=== PATIENT | female | born 1955 | race Caucasian/White ===

== ENCOUNTER 2020-03-15 16:37 | Emergency (ER) | payer OTHER ==
--- NOTE | 2020-03-15 16:45 | PDOC ---
Rapid Medical Evaluation Time Seen by Provider: 03/15/20 16:39 Medical Evaluation: 03/15/20 16:41 I have performed a brief in-person evaluation of this patient. CC: sent by PMD for hyponatremia; NA-123 PE: fine crackles bilateral bases. No focal neuro deficits. Orders: Labs, urine, cxr, ekg Patient will proceed to ED for further evaluation. 03/15/20 16:44 Discharge Disposition - Diagnosis Hyponatremia - Referrals - Patient Instructions - Post Discharge Activity
[2020-03-15 17:01] VITALS: BP 162/79; PULSE 98; TEMP 99.6; BMI 19.7
[2020-03-15 17:57] LABS: BASO % 0.3 % (0-2.0); EOS % 2.3 % (0-4.5); HEMATOCRIT 32.4 % (32.4-45.2); HEMOGLOBIN 10.5 GM/dL (10.7-15.3); LYMPH % 20.2 % (8-40); MCH 25.9 pg (25.7-33.7); MCHC 32.5 g/dl (32.0-36.0); MEAN CELL VOLUME 79.7 fl (80-96); MEAN PLT VOLUME 7.1 fl (7.5-11.1); MONO % 2.6 % (3.8-10.2); NEUT % 74.6 % (42.8-82.8); PLATELET COUNT 509 K/MM3 (134-434); RBC 4.06 M/mm3 (3.60-5.2); RDW 16.4 % (11.6-15.6); WHITE BLOOD COUNT 9.9 K/mm3 (4.0-10.0)
--- NOTE | 2020-03-15 18:10 | PDOC ---
History of Present Illness - General Chief Complaint: Abnormal Lab Results (Outside) Stated Complaint: SENT BY DOC Time Seen by Provider: 03/15/20 16:39 - History of Present Illness Initial Comments: 03/15/20 18:04 64 F with hx of polyarteritist presenting with hyponatremia as found from her new PCP. Patient has no new symptoms and went to establish care with Dr. Ramirez yesterday. There they found her to be hyponatremia of 124, had crackles at the bases bilaterally. At ED, She denies any new symptoms. patient is not confused, denies nausea, vomiting, headache, chest pain, SOB, syncope. She endorses joints and back pain that are chronic for 10 years. Patient denies sick contact with COVID. She denies F/C/congestion, abdominal pain. No other concern. PMHX: as in HPI PSHX: none Meds: none Allergies: none Tob: none Etoh: none Rec drugs: none PCP: Brandt Ramirez Sifter Operator: Jared GONZALEZ GENERAL/CONSTITUTIONAL: No fever or chills. No weakness. HEAD, EYES, EARS, NOSE AND THROAT: No change in vision. No ear pain or discharge. No sore throat. CARDIOVASCULAR: No chest pain or shortness of breath RESPIRATORY: No cough, wheezing, or hemoptysis. GASTROINTESTINAL: No nausea, vomiting, diarrhea or constipation. GENITOURINARY: No dysuria, frequency, or change in urination. MUSCULOSKELETAL: + joints pain. No neck pain, + back pain. SKIN: No rash NEUROLOGIC: No headache, vertigo, loss of consciousness, or change in strength/sensation. ENDOCRINE: No increased thirst. No abnormal weight change HEMATOLOGIC/LYMPHATIC: No anemia, easy bleeding, or history of blood clots. ALLERGIC/IMMUNOLOGIC: No hives or skin allergy. PE GENERAL: Awake, alert, and fully oriented, in no acute distress HEAD: No signs of trauma, normocephalic, atraumatic EYES: PERRLA, EOMI, sclera anicteric, conjunctiva clear ENT: Auricles normal inspection, hearing grossly normal, nares patent, oropharynx clear without exudates. Moist mucosa NECK: Normal ROM, supple, no lymphadenopathy, JVD, or masses LUNGS: No distress, speaks full sentences, bilateral crackles more on right than left. HEART: Regular rate and rhythm, normal S1 and S2, no murmurs, rubs or gallops, peripheral pulses normal and equal bilaterally. ABDOMEN: Soft, nontender, normoactive bowel sounds. No guarding, no rebound. No masses EXTREMITIES : Normal inspection, Normal range of motion, no edema. No clubbing or cyanosis. NEUROLOGICAL: Cranial nerves II through XII grossly intact. Normal speech, normal gait, no focal sensorimotor deficits SKIN: Warm, Dry, normal turgor, no rashes or lesions noted 03/15/20 18:19 03/15/20 19:44 Past History - Medical History Allergies/Adverse Reactions: Allergies Allergy/AdvReac Type Severity Reaction Status Date / Time No Known Allergies Allergy Verified 03/15/20 16:49 Home Medications: Ambulatory Orders NK [No Known Home Medication] 03/15/20 COPD: No - Reproductive History Is Patient Now?: No - Immunization History Immunization Up to Date: No - Psycho-Social/Smoking History Smoking History: Never smoked Have you smoked in the past 12 months: No Information on smoking cessation initiated: No - Substance Abuse Hx (Audit-C & DAST Scrn) How often the patient has a drink containing alcohol: Never Score: In Men: 4 or > Positive; In Women: 3 or > Positive: 0 Screen Result (Pos requires Nsg. Audit-10AR): Negative In the last yr the pt used illegal drug/Rx for NonMed reason: No Score: Yes response is considered Positive: 0 Screen Result (Positive result requires Nsg. DAST-10): Negative *Physical Exam - Vital Signs Last Vital Signs Temp Pulse Resp BP Pulse Ox 99.6 F 98 H 16 162/79 97 03/15/20 16:43 03/15/20 16:43 03/15/20 16:43 03/15/20 16:43 03/15/20 16:43 ED Treatment Course - LABORATORY CBC & Chemistry Diagram: 03/15/20 16:52 03/15/20 16:52 Medical Decision Making - Medical Decision Making 03/15/20 18:10 64 F with referral from PCP for concern of hyponatremia of 124. Will follow the algorithm of hyponatremia. 03/15/20 19:44 Xray showed chronic interstitial lung disease. Lab show Na of 129. s/p 1 days from found hyponatremia [address] James wilkinson. Patient is asymptomic. Sodium is on the borderline normal . Given the presentation, patient is stable. Will d/c home and follow up with Dr. Ramirez. Discharge - Discharge Information Problems reviewed: Yes Clinical Impression/Diagnosis: Hyponatremia Condition: Stable Disposition: HOME - Admission No - Follow up/Referral Referrals: Conrado Mccollum MD [Staff Physician] - - Patient Discharge Instructions Additional Instructions: You were seen in the ED for complaints of low sodium found in your PCP office. In the ED you were evaluated with labwork, found to have sodium of nearly normal and you have no symptoms at this time. There does not appear to be an acute need for immediate hospitalization. You are advised to follow up with your Primary Care Physician within 1 week. Return to the ED immediately if you experience nausea, headache, vomiting, confusion, or any other concerning symptoms. Fue visto en el servicio de urgencias por quejas de bajo contenido de sodio en el [facility]. En el servicio de urgencias lo evaluaron con trabajo de laboratorio, se encontr que trudy sodio corinne normal y no tiene sntomas en mary momento. No parece go macie necesidad aguda de hospitalizacin inmediata. Se le recomienda hacer un seguimiento con [facility] atencin primaria dentro de 1 semana. Regrese al servicio de urgencias de inmediato si experimenta nuseas, dolor de pricila, vmitos, confusin o cualquier otro sntoma preocupante. - Post Discharge Activity
[2020-03-15 18:26] LABS: ALBUMIN 2.8 g/dl (3.4-5.0); BILIRUBIN,TOTAL 0.4 mg/dL (0.2-1); BLOOD UREA NITROGEN 11.2 mg/dL (7-18); CALCIUM 8.6 mg/dL (8.5-10.1); CREATININE 0.7 mg/dL (0.55-1.3); MAGNESIUM 2.1 mg/dL (1.8-2.4); N-TERMINAL BNP 628.7 pg/ml (5-125); POTASSIUM 4.4 mmol/L (3.5-5.1); TOT PROT 8.1 g/dl (6.4-8.2)
--- NOTE | 2020-03-16 13:15 | EKG ---
Test Reason : Blood Pressure : / mmHG Vent. Rate : 099 BPM Atrial Rate : 099 BPM P-R Int : 132 ms QRS Dur : 068 ms QT Int : 308 ms P-R-T Axes : 057 007 042 degrees QTc Int : 395 ms NORMAL SINUS RHYTHM POSSIBLE LEFT ATRIAL ENLARGEMENT BORDERLINE ECG NO PREVIOUS ECGS AVAILABLE Confirmed by MD YONIS, MINI ([id number]) on 03/16/2020 1:14:45 PM Referred By: Confirmed By:MINI SOMERS MD
--- NOTE | 2020-03-16 18:24 | PDOC ---
Documentation entered by Sonia Nieto SCRIBE, acting as scribe for Jolanta Bueno MD. Jolanta Bueno MD: This documentation has been prepared by the Gerson crow Ana, SCRIBE, under my direction and personally reviewed by me in its entirety. I confirm that the documentation accurately reflects all work, treatment, procedures, and medical decision making performed by me. Attending Attestation - Resident Resident Name: Carlton Frank - ED Attending Attestation I have performed the following: I have examined & evaluated the patient, The case was reviewed & discussed with the resident, I agree w/resident's findings & plan, Exceptions are as noted - HPI HPI: 03/15/20 17:08 Patient is a 64 year old female with a significant past medical history of polyarteritis nodosa who presents to the ED, from PCP's office, with abnormal lab results. Patient stated that at PCP's office they found her to be hyponatremic. Reportedly her Na was 123. Pt reports chronic joint pain that her PMD is treating, but denies any new recent symptoms. She denies syncope, headache, nausea, vomiting, diarrhea, SOB, chest pain, focal weakness/numbness, dizziness. Denies alcohol intake, smoking, recreational drug use. Denies contact with anyone COVID positive. Allergies: NKDA - Physicial Exam PE: 03/16/20 18:13 Agree with resident exam - Medical Decision Making 03/16/20 18:13 64yo pt, hx ENCINAS, presents to the ED with outpt lab value of Na 123 Pt completely asmyptomatic and well appearing. Vitals wnl, exam wnl Rpt sodium here with mild hyponatremia to 129 Remaining labs wnl Given hyponatremia is mild, plan to DC pt with close outpt f/u and strict return precautions Pt expresses understanding of plan I discussed the physical exam findings, ancillary test results and final diagnoses with the patient. I answered all of the patient's questions. The patient was satisfied with the care received and felt comfortable with the discharge plan and treatment plan. The patient will call their primary care physician within 24 hours to arrange follow-up and will return to the Emergency Department with any new, persistent or worsening symptoms. Discharge - Discharge Information Problems reviewed: Yes Clinical Impression/Diagnosis: Hyponatremia Condition: Stable Disposition: HOME - Follow up/Referral Referrals: Conrado Mccollum MD [Staff Physician] - - Patient Discharge Instructions Additional Instructions: You were seen in the ED for complaints of low sodium found in your PCP office. In the ED you were evaluated with labwork, found to have sodium of nearly normal and you have no symptoms at this time. There does not appear to be an acute need for immediate hospitalization. You are advised to follow up with your Primary Care Physician within 1 week. Return to the ED immediately if you experience nausea, headache, vomiting, confusion, or any other concerning symptoms. Fue visto en el servicio de urgencias por quejas de bajo contenido de sodio en el [facility] PCP. En el servicio de urgencias lo evaluaron con trabajo de laboratorio, se encontr que trudy sodio corinne normal y no tiene sntomas en mary momento. No parece go macie necesidad aguda de hospitalizacin inmediata. Se le recomienda hacer un seguimiento con [facility] atencin primaria dentro de 1 semana. Regrese al servicio de urgencias de inmediato si experimenta nuseas, dolor de pricila, vmitos, confusin o cualquier otro sntoma preocupante. - Post Discharge Activity
== END 2020-03-15 19:11 | disposition home or self-care (01) ==
LOC: JER 16:37
DX: E87.1 Hypo-osmolality and hyponatremia (principal)
CPT/HCPCS: 36415; 71046-TC-FY; 80053; 83735; 83880; 85025; 93005; 93010; 99285-25

== ENCOUNTER 2022-08-02 06:37 | Inpatient (IN) | payer OTHER ==
[2022-08-02 06:55] VITALS: BMI 22.3
[2022-08-02] MEDS ORDERED: FUROSEMIDE 40 MG/4 ML INJECTABLE VIAL IVPUSH ONE ×3 (08:17→10:01)
[2022-08-02 08:52] LABS: VENOUS BASE EXCESS -1.6 mmol/L (-2-2); VENOUS O2 SATURATION 66.3 % (70-80); VENOUS PCO2 55.6 mmHg (38-52); VENOUS PH 7.285 (7.310-7.410)
[2022-08-02 08:53] LABS: HEMATOCRIT 38.5 % (32.4-45.2); HEMOGLOBIN 11.8 GM/dL (10.7-15.3); MCH 28.4 pg (25.7-33.7); MCHC 30.7 g/dl (32.0-36.0); MEAN CELL VOLUME 92.4 fl (80-96); MEAN PLT VOLUME 7.9 fl (7.5-11.1); PLATELET COUNT 348 10^3/uL (134-434); RBC 4.16 M/mm3 (3.60-5.2); RDW 19.7 % (11.6-15.6)
[2022-08-02 09:00] LABS: INR 0.9 (0.83-1.09); PROTHROMBIN TIME (PATIENT) 10.3 SEC (9.7-13.0)
[2022-08-02 09:03] LABS: ACTIVATED PTT 28.6 SECONDS (25.2-36.5)
[2022-08-02 09:10] LABS: CHLORIDE 105 mmol/L (98-107); SODIUM 141 mmol/L (136-145)
[2022-08-02 09:12] LABS: ALBUMIN 2.9 g/dl (3.4-5.0); ANION GAP 8 MMOL/L (8-16); BLOOD UREA NITROGEN 62.8 mg/dL (7-18); CO2 28 mmol/L (21-32)
[2022-08-02 09:13] LABS: GLUCOSE,RANDOM 110 mg/dL (74-106); LIPASE 655 U/L (73-393); MAGNESIUM 2.4 mg/dL (1.8-2.4)
[2022-08-02 09:16] LABS: SGPT/ALT 20 U/L (13-61)
[2022-08-02 09:17] LABS: BILIRUBIN,TOTAL 0.4 mg/dL (0.2-1); TOT PROT 6.4 g/dl (6.4-8.2)
[2022-08-02 09:19] LABS: ALK PHOS 321 U/L (45-117)
[2022-08-02 09:22] LABS: SGOT/AST 15 U/L (15-37)
[2022-08-02] MEDS ORDERED: FUROSEMIDE 40 MG/4 ML INJECTABLE VIAL ONE ×2 (09:34→11:22)
[2022-08-02 09:39] LABS: N-TERMINAL BNP 35780.2 pg/ml (5-125)
[2022-08-02 09:41] LABS: ANISOCYTOSIS 1+; MACROCYTOSIS 1+
[2022-08-02] MEDS ORDERED: ASPIRIN 81 MG CHEWABLE TABLETS PO ONE (09:53)
[2022-08-02] MEDS ORDERED: ASPIRIN 81 MG CHEWABLE TABLETS ONE (11:22)
[2022-08-02] MEDS ORDERED: PIPERACILLIN/TAZOB 4.5 GM 4.5 GM in DEXTROSE 5%-WATER 100 ML IVPB ONE (12:36)
[2022-08-02] MEDS ORDERED: PIPERACILLIN/TAZOB 4.5 GM 4.5 GM/100 ML BAG IVPB ONE (13:11)
[2022-08-02 17:17] LABS: EPI CELLS 4 /uL (0-25.1); HYALINE CASTS 1 /uL (0-3.1); URINE APPEARANCE CLEAR; URINE BACTERIA 2 /uL (0-1359); URINE BILIRUBIN NEGATIVE (NEGATIVE); URINE COLOR YELLOW; URINE GLUCOSE (UA) NEGATIVE (NEGATIVE); URINE KETONE NEGATIVE (NEGATIVE); URINE LEUK ESTERASE NEGATIVE (NEGATIVE); URINE NITRITE NEGATIVE (NEGATIVE); URINE PROTEIN 1+ (NEGATIVE); URINE RBC 21 /uL (0-23.9); URINE UROBILINOGEN 0.2 mg/dL (0.2-1.0); URINE WBC 6 /uL (0-25.8)
[2022-08-02] MEDS ORDERED: LEVOTHYROXINE NA 25 MCG TABLET (FP) PO ONE (18:51)
[2022-08-02] MEDS ORDERED: LEVOTHYROXINE NA 25 MCG TABLET (FP) ONE (19:45)
[2022-08-02] MEDS ORDERED: HEPARIN NA (PORCINE) 5,000 UNITS/ML 1ML VIAL ONE (22:42)
[2022-08-02] MEDS: HEPARIN NA (PORCINE) 5,000 UNITS/ML 1ML VIAL SQ SCH (22:48)
[2022-08-03] MEDS ORDERED: ACETAMINOPHEN 325 MG TABLET (FP) ONE (05:19)
[2022-08-03] MEDS: ACETAMINOPHEN 325 MG TABLET (FP) PO PRN (06:00)
[2022-08-03 06:09] LABS: HEMATOCRIT 34.6 % (32.4-45.2); HEMOGLOBIN 10.5 GM/dL (10.7-15.3); MCH 28.3 pg (25.7-33.7); MCHC 30.5 g/dl (32.0-36.0); MEAN CELL VOLUME 92.8 fl (80-96); PLATELET COUNT 339 10^3/uL (134-434); RBC 3.73 M/mm3 (3.60-5.2); RDW 19.5 % (11.6-15.6); WHITE BLOOD COUNT 21.1 K/mm3 (4.0-10.0)
[2022-08-03 06:28] LABS: CALCIUM 8.6 mg/dL (8.5-10.1)
[2022-08-03 06:30] LABS: ALBUMIN 2.6 g/dl (3.4-5.0); BLOOD UREA NITROGEN 61.1 mg/dL (7-18)
[2022-08-03 06:32] LABS: CREATININE 0.9 mg/dL (0.55-1.3)
[2022-08-03 06:34] LABS: BILIRUBIN,TOTAL 0.4 mg/dL (0.2-1); TOT PROT 5.6 g/dl (6.4-8.2)
[2022-08-03] MEDS ORDERED: LEVOTHYROXINE NA 25 MCG TABLET (FP) ONE (08:10)
[2022-08-03] MEDS: LEVOTHYROXINE NA 25 MCG TABLET (FP) PO SCH (08:15)
[2022-08-03 09:12] LABS: ANISOCYTOSIS 0; MACROCYTOSIS 0
[2022-08-03] MEDS ORDERED: FUROSEMIDE 40 MG/4 ML INJECTABLE VIAL IVPUSH SCH (10:00)
[2022-08-03] MEDS ORDERED: FUROSEMIDE 40 MG/4 ML INJECTABLE VIAL ONE (10:37)
[2022-08-03] MEDS ORDERED: CEFTRIAXONE 1 GM/50 ML BAG ONE (10:37)
[2022-08-03] MEDS: HEPARIN NA (PORCINE) 5,000 UNITS/ML 1ML VIAL SQ SCH (10:45)
[2022-08-03] MEDS: CEFTRIAXONE 1 GM in DEXTROSE 5%-WATER - 50 ML IVPB SCH (10:45)
[2022-08-03] MEDS ORDERED: DEXTROSE 5%-0.45% SALINE 1,000 ML IV SCH (17:15)
[2022-08-04] MEDS: HEPARIN NA (PORCINE) 5,000 UNITS/ML 1ML VIAL SQ SCH ×3 (00:26→21:29)
[2022-08-04] MEDS ORDERED: HEPARIN NA (PORCINE) 5,000 UNITS/ML 1ML VIAL ONE (00:28)
[2022-08-04] MEDS: LEVOTHYROXINE NA 25 MCG TABLET (FP) PO SCH (06:00)
[2022-08-04 08:34] LABS: HEMATOCRIT 31.9 % (32.4-45.2); HEMOGLOBIN 9.8 GM/dL (10.7-15.3); MCH 28.5 pg (25.7-33.7); MCHC 30.7 g/dl (32.0-36.0); MEAN PLT VOLUME 8.1 fl (7.5-11.1); PLATELET COUNT 278 10^3/uL (134-434); RBC 3.42 M/mm3 (3.60-5.2); RDW 18.6 % (11.6-15.6)
[2022-08-04 08:53] LABS: CALCIUM 8.4 mg/dL (8.5-10.1)
[2022-08-04 08:54] LABS: AMYLASE 82 U/L (25-115); LIPASE 433 U/L (73-393)
[2022-08-04 08:56] LABS: CREATININE 0.8 mg/dL (0.55-1.3)
[2022-08-04 09:21] LABS: ANISOCYTOSIS 1+; MACROCYTOSIS 1+
[2022-08-04 09:24] LABS: ERYTHROCYTE SEDIMENTATION RATE 36 mm/hr (0-30)
[2022-08-04] MEDS: CEFTRIAXONE 1 GM in DEXTROSE 5%-WATER - 50 ML IVPB SCH (09:25)
[2022-08-04] MEDS: PANTOPRAZOLE 40 MG TABLET PO SCH (09:25)
[2022-08-04] MEDS: AMINO ACIDS 4.25%/D5W 1,000 ML IV SCH ×2 (09:25→21:30)
[2022-08-05] MEDS: LEVOTHYROXINE NA 25 MCG TABLET (FP) PO SCH (06:39)
[2022-08-05] MEDS: AMINO ACIDS 4.25%/D5W 1,000 ML IV SCH ×3 (06:39→22:07)
[2022-08-05 08:12] LABS: BASO % 0.1 % (0-2.0); EOS % 0.5 % (0-4.5); HEMATOCRIT 27.5 % (32.4-45.2); HEMOGLOBIN 8.3 GM/dL (10.7-15.3); LYMPH % 5.9 % (8-40); MCHC 30.1 g/dl (32.0-36.0); MEAN CELL VOLUME 93.2 fl (80-96); MEAN PLT VOLUME 7.9 fl (7.5-11.1); MONO % 2.7 % (3.8-10.2); NEUT % 90.8 % (42.8-82.8); PLATELET COUNT 236 10^3/uL (134-434); RBC 2.95 M/mm3 (3.60-5.2); RDW 19.2 % (11.6-15.6); WHITE BLOOD COUNT 16.8 K/mm3 (4.0-10.0)
[2022-08-05 08:47] LABS: CALCIUM 8.2 mg/dL (8.5-10.1)
[2022-08-05 08:48] LABS: BLOOD UREA NITROGEN 55.9 mg/dL (7-18)
[2022-08-05 08:50] LABS: CREATININE 0.7 mg/dL (0.55-1.3)
[2022-08-05] MEDS: CEFTRIAXONE 1 GM in DEXTROSE 5%-WATER - 50 ML IVPB SCH (09:50)
[2022-08-05] MEDS: HEPARIN NA (PORCINE) 5,000 UNITS/ML 1ML VIAL SQ SCH ×2 (09:50→22:03)
[2022-08-05] MEDS: PANTOPRAZOLE 40 MG TABLET PO SCH (09:51)
[2022-08-05] MEDS ORDERED: POTASSIUM CHLORIDE ORAL LIQUID 20 MEQ/15 ML PO ONE (11:39)
[2022-08-05] MEDS: ACETAMINOPHEN 325 MG TABLET (FP) PO PRN ×2 (16:32→22:08)
[2022-08-06] MEDS: LEVOTHYROXINE NA 25 MCG TABLET (FP) PO SCH ×2 (05:39→06:36)
[2022-08-06 08:07] LABS: BASO % 0.3 % (0-2.0); EOS % 1.2 % (0-4.5); HEMATOCRIT 25.5 % (32.4-45.2); HEMOGLOBIN 7.8 GM/dL (10.7-15.3); LYMPH % 6.5 % (8-40); MCH 28.5 pg (25.7-33.7); MCHC 30.7 g/dl (32.0-36.0); MEAN CELL VOLUME 92.8 fl (80-96); MEAN PLT VOLUME 8.6 fl (7.5-11.1); MONO % 3.7 % (3.8-10.2); NEUT % 88.3 % (42.8-82.8); PLATELET COUNT 212 10^3/uL (134-434); RBC 2.75 M/mm3 (3.60-5.2); RDW 19.1 % (11.6-15.6)
[2022-08-06 08:40] LABS: BLOOD UREA NITROGEN 55.6 mg/dL (7-18)
[2022-08-06 08:42] LABS: CREATININE 0.6 mg/dL (0.55-1.3)
[2022-08-06] MEDS: CEFTRIAXONE 1 GM in DEXTROSE 5%-WATER - 50 ML IVPB SCH (09:48)
[2022-08-06] MEDS: PANTOPRAZOLE 40 MG TABLET PO SCH (09:48)
[2022-08-06] MEDS: HEPARIN NA (PORCINE) 5,000 UNITS/ML 1ML VIAL SQ SCH ×2 (09:48→22:10)
[2022-08-06] MEDS: AMINO ACIDS 4.25%/D5W 1,000 ML IV SCH ×2 (09:48→23:35)
[2022-08-07] MEDS: LEVOTHYROXINE NA 25 MCG TABLET (FP) PO SCH (06:00)
[2022-08-07 07:42] LABS: BASO % 0.2 % (0-2.0); HEMATOCRIT 24.8 % (32.4-45.2); HEMOGLOBIN 7.7 GM/dL (10.7-15.3); MCH 28.8 pg (25.7-33.7); MEAN CELL VOLUME 93.1 fl (80-96); MEAN PLT VOLUME 8.7 fl (7.5-11.1); MONO % 5.2 % (3.8-10.2); NEUT % 87.6 % (42.8-82.8); PLATELET COUNT 214 10^3/uL (134-434); RBC 2.66 M/mm3 (3.60-5.2); RDW 18.5 % (11.6-15.6); WHITE BLOOD COUNT 13.9 K/mm3 (4.0-10.0)
[2022-08-07 08:03] LABS: ALBUMIN 2.3 g/dl (3.4-5.0); BLOOD UREA NITROGEN 51.5 mg/dL (7-18); CALCIUM 7.8 mg/dL (8.5-10.1)
[2022-08-07 08:06] LABS: CREATININE 0.7 mg/dL (0.55-1.3)
[2022-08-07 08:08] LABS: BILIRUBIN,TOTAL 0.4 mg/dL (0.2-1); TOT PROT 5.2 g/dl (6.4-8.2)
[2022-08-07] MEDS: HEPARIN NA (PORCINE) 5,000 UNITS/ML 1ML VIAL SQ SCH ×2 (10:20→22:14)
[2022-08-07] MEDS: PANTOPRAZOLE 40 MG TABLET PO SCH (10:21)
[2022-08-07] MEDS: CEFTRIAXONE 1 GM in DEXTROSE 5%-WATER - 50 ML IVPB SCH (10:21)
[2022-08-07] MEDS: AMINO ACIDS 4.25%/D5W 1,000 ML IV SCH (10:36)
[2022-08-07] MEDS: FUROSEMIDE 40 MG/4 ML INJECTABLE VIAL IVPUSH SCH (14:48)
[2022-08-07] MEDS ORDERED: LOSARTAN POTASSIUM 50 MG TABLET PO ONE (17:40)
[2022-08-08] MEDS: LEVOTHYROXINE NA 25 MCG TABLET (FP) PO SCH (06:02)
[2022-08-08 09:40] LABS: BASO % 0.3 % (0-2.0); EOS % 0.9 % (0-4.5); HEMATOCRIT 23.8 % (32.4-45.2); HEMOGLOBIN 7.3 GM/dL (10.7-15.3); LYMPH % 6.9 % (8-40); MCH 28.7 pg (25.7-33.7); MCHC 30.7 g/dl (32.0-36.0); MEAN CELL VOLUME 93.5 fl (80-96); MEAN PLT VOLUME 9.3 fl (7.5-11.1); MONO % 6.5 % (3.8-10.2); NEUT % 85.4 % (42.8-82.8); PLATELET COUNT 240 10^3/uL (134-434); RBC 2.55 M/mm3 (3.60-5.2); RDW 18.8 % (11.6-15.6); WHITE BLOOD COUNT 12.8 K/mm3 (4.0-10.0)
[2022-08-08] MEDS: FUROSEMIDE 40 MG/4 ML INJECTABLE VIAL IVPUSH SCH (09:42)
[2022-08-08] MEDS: HEPARIN NA (PORCINE) 5,000 UNITS/ML 1ML VIAL SQ SCH ×2 (09:43→23:29)
[2022-08-08] MEDS: ACETAMINOPHEN 325 MG TABLET (FP) PO PRN (09:43)
[2022-08-08] MEDS: PANTOPRAZOLE 40 MG TABLET PO SCH (09:44)
[2022-08-08] MEDS: LOSARTAN POTASSIUM 50 MG TABLET PO SCH (09:44)
[2022-08-08] MEDS ORDERED: CEFTRIAXONE 1 GM in DEXTROSE 5%-WATER - 50 ML IVPB SCH (10:00)
[2022-08-08 10:15] LABS: CALCIUM 8.3 mg/dL (8.5-10.1)
[2022-08-08 10:16] LABS: ALBUMIN 2.3 g/dl (3.4-5.0); BLOOD UREA NITROGEN 39.2 mg/dL (7-18)
[2022-08-08 10:18] LABS: BILIRUBIN,TOTAL 0.3 mg/dL (0.2-1); CREATININE 0.6 mg/dL (0.55-1.3); TOT PROT 5.1 g/dl (6.4-8.2)
[2022-08-08] MEDS ORDERED: IRON SUCROSE INJECTION 200 MG in SODIUM CHLORIDE 90 ML IVPB SCH (12:30)
[2022-08-08] MEDS ORDERED: IRON SUCROSE INJECTION 200 MG in SODIUM CHLORIDE 90 ML IVPB ONE (13:28)
[2022-08-08] MEDS: PIPERACILLIN/TAZOB 3.375 GM 3.375 GM in DEXTROSE 5%-WATER - 50 ML IVPB SCH (17:50)
[2022-08-09] MEDS: PIPERACILLIN/TAZOB 3.375 GM 3.375 GM in DEXTROSE 5%-WATER - 50 ML IVPB SCH ×2 (02:06→10:45)
[2022-08-09] MEDS: LEVOTHYROXINE NA 25 MCG TABLET (FP) PO SCH (06:09)
[2022-08-09 08:49] LABS: BASO % 0.2 % (0-2.0); EOS % 0.7 % (0-4.5); HEMATOCRIT 25.6 % (32.4-45.2); HEMOGLOBIN 7.8 GM/dL (10.7-15.3); LYMPH % 6.2 % (8-40); MCH 28.9 pg (25.7-33.7); MCHC 30.4 g/dl (32.0-36.0); MEAN CELL VOLUME 94.9 fl (80-96); MEAN PLT VOLUME 8.7 fl (7.5-11.1); MONO % 3.6 % (3.8-10.2); NEUT % 89.3 % (42.8-82.8); PLATELET COUNT 241 10^3/uL (134-434); RDW 18.9 % (11.6-15.6); WHITE BLOOD COUNT 12.8 K/mm3 (4.0-10.0)
[2022-08-09] MEDS: FUROSEMIDE 40 MG/4 ML INJECTABLE VIAL IVPUSH SCH (10:45)
[2022-08-09] MEDS: PANTOPRAZOLE 40 MG TABLET PO SCH (11:15)
[2022-08-09] MEDS: HEPARIN NA (PORCINE) 5,000 UNITS/ML 1ML VIAL SQ SCH ×2 (11:15→21:02)
[2022-08-09] MEDS: LOSARTAN POTASSIUM 50 MG TABLET PO SCH (11:16)
[2022-08-09] MEDS: AMINO ACIDS/PROTEIN HYDROLYS 30 ML LIQUID.PKT PO SCH (17:40)
[2022-08-10] MEDS: LEVOTHYROXINE NA 25 MCG TABLET (FP) PO SCH (06:32)
[2022-08-10] MEDS: FUROSEMIDE 40 MG TABLET (FP) PO SCH (09:28)
[2022-08-10] MEDS: LOSARTAN POTASSIUM 50 MG TABLET PO SCH (09:28)
[2022-08-10] MEDS: PANTOPRAZOLE 40 MG TABLET PO SCH (09:28)
[2022-08-10] MEDS: HEPARIN NA (PORCINE) 5,000 UNITS/ML 1ML VIAL SQ SCH (09:28)
[2022-08-10] MEDS: AMINO ACIDS/PROTEIN HYDROLYS 30 ML LIQUID.PKT PO SCH ×2 (09:28→17:14)
[2022-08-10 10:11] LABS: BASO % 0.3 % (0-2.0); EOS % 1.3 % (0-4.5); LYMPH % 10.1 % (8-40); MCH 29.3 pg (25.7-33.7); MEAN CELL VOLUME 94.5 fl (80-96); MEAN PLT VOLUME 9.2 fl (7.5-11.1); NEUT % 82.3 % (42.8-82.8); PLATELET COUNT 235 10^3/uL (134-434); RBC 2.33 M/mm3 (3.60-5.2); RDW 18.9 % (11.6-15.6); WHITE BLOOD COUNT 11.9 K/mm3 (4.0-10.0)
[2022-08-10 10:22] LABS: HEMOGLOBIN 6.8 GM/dL (10.7-15.3)
[2022-08-10 10:36] LABS: ALBUMIN 2.1 g/dl (3.4-5.0)
[2022-08-10 10:37] LABS: CALCIUM 8.2 mg/dL (8.5-10.1)
[2022-08-10 10:38] LABS: BLOOD UREA NITROGEN 40.5 mg/dL (7-18)
[2022-08-10 10:39] LABS: CREATININE 0.7 mg/dL (0.55-1.3)
[2022-08-10 10:41] LABS: BILIRUBIN,TOTAL 0.3 mg/dL (0.2-1); TOT PROT 4.9 g/dl (6.4-8.2)
[2022-08-10] MEDS ORDERED: IRON SUCROSE INJECTION 200 MG in SODIUM CHLORIDE 90 ML IVPB ONE (11:34)
[2022-08-10] MEDS: PIPERACILLIN/TAZOB 3.375 GM 3.375 GM in DEXTROSE 5%-WATER - 50 ML IVPB SCH ×2 (12:51→17:14)
[2022-08-11] MEDS: PIPERACILLIN/TAZOB 3.375 GM 3.375 GM in DEXTROSE 5%-WATER - 50 ML IVPB SCH ×4 (02:22→17:30)
[2022-08-11] MEDS: LEVOTHYROXINE NA 25 MCG TABLET (FP) PO SCH (06:13)
[2022-08-11] MEDS: FUROSEMIDE 40 MG TABLET (FP) PO SCH (09:17)
[2022-08-11] MEDS: PANTOPRAZOLE 40 MG TABLET PO SCH (09:17)
[2022-08-11] MEDS: LOSARTAN POTASSIUM 50 MG TABLET PO SCH (09:17)
[2022-08-11] MEDS: AMINO ACIDS/PROTEIN HYDROLYS 30 ML LIQUID.PKT PO SCH ×2 (09:18→17:31)
[2022-08-11 10:40] LABS: HEMATOCRIT 28.5 % (32.4-45.2); HEMOGLOBIN 9.1 GM/dL (10.7-15.3); MCHC 31.9 g/dl (32.0-36.0); MEAN CELL VOLUME 90.8 fl (80-96); MEAN PLT VOLUME 8.9 fl (7.5-11.1); PLATELET COUNT 249 10^3/uL (134-434); RBC 3.14 M/mm3 (3.60-5.2); WHITE BLOOD COUNT 13.4 K/mm3 (4.0-10.0)
[2022-08-12] MEDS: PIPERACILLIN/TAZOB 3.375 GM 3.375 GM in DEXTROSE 5%-WATER - 50 ML IVPB SCH ×3 (02:13→17:36)
[2022-08-12] MEDS: LEVOTHYROXINE NA 25 MCG TABLET (FP) PO SCH (06:15)
[2022-08-12] MEDS: AMINO ACIDS/PROTEIN HYDROLYS 30 ML LIQUID.PKT PO SCH ×2 (08:23→17:36)
[2022-08-12] MEDS: PANTOPRAZOLE 40 MG TABLET PO SCH (11:21)
[2022-08-12] MEDS: FUROSEMIDE 40 MG TABLET (FP) PO SCH (11:21)
[2022-08-12] MEDS: LOSARTAN POTASSIUM 50 MG TABLET PO SCH (11:21)
[2022-08-12 16:38] LABS: HEMATOCRIT 28.3 % (32.4-45.2); HEMOGLOBIN 9.1 GM/dL (10.7-15.3); MCH 29.3 pg (25.7-33.7); MEAN CELL VOLUME 91.3 fl (80-96); MEAN PLT VOLUME 8.6 fl (7.5-11.1); PLATELET COUNT 214 10^3/uL (134-434); RDW 20.2 % (11.6-15.6); WHITE BLOOD COUNT 10.7 K/mm3 (4.0-10.0)
[2022-08-13] MEDS: PIPERACILLIN/TAZOB 3.375 GM 3.375 GM in DEXTROSE 5%-WATER - 50 ML IVPB SCH ×2 (01:54→11:17)
[2022-08-13] MEDS: LEVOTHYROXINE NA 25 MCG TABLET (FP) PO SCH (06:18)
[2022-08-13] MEDS: PANTOPRAZOLE 40 MG TABLET PO SCH (11:17)
[2022-08-13] MEDS: AMINO ACIDS/PROTEIN HYDROLYS 30 ML LIQUID.PKT PO SCH ×2 (11:17→17:56)
[2022-08-13 11:29] LABS: HEMOGLOBIN 9.2 GM/dL (10.7-15.3); MCHC 31.7 g/dl (32.0-36.0); MEAN CELL VOLUME 91.5 fl (80-96); MEAN PLT VOLUME 8.2 fl (7.5-11.1); PLATELET COUNT 202 10^3/uL (134-434); RBC 3.17 M/mm3 (3.60-5.2); RDW 20.6 % (11.6-15.6); WHITE BLOOD COUNT 10.1 K/mm3 (4.0-10.0)
[2022-08-13 11:49] LABS: CHLORIDE 110 mmol/L (98-107); SODIUM 143 mmol/L (136-145)
[2022-08-13 11:51] LABS: CALCIUM 7.6 mg/dL (8.5-10.1)
[2022-08-13 11:52] LABS: BLOOD UREA NITROGEN 44.4 mg/dL (7-18); CO2 27 mmol/L (21-32); GLUCOSE,RANDOM 107 mg/dL (74-106)
[2022-08-13 11:55] LABS: CREATININE 1.2 mg/dL (0.55-1.3)
[2022-08-13] MEDS: FUROSEMIDE 40 MG TABLET (FP) PO SCH (12:23)
[2022-08-13] MEDS: LOSARTAN POTASSIUM 50 MG TABLET PO SCH (12:33)
[2022-08-13 14:02] LABS: ANION GAP 7 MMOL/L (8-16)
[2022-08-13] MEDS ORDERED: POTASSIUM CHLORIDE ORAL LIQUID 20 MEQ/15 ML PO ONE (14:10)
[2022-08-13] MEDS: KCL 10 MEQ IVPB 10 MEQ/100 ML INFUS.BAG IVPB SCH ×3 (14:57→17:56)
[2022-08-13] MEDS: NYSTATIN POWDER 100,000 UNITS/GM - 15 GM TOPICAL POWDER TP SCH ×2 (17:19→23:38)
[2022-08-13] MEDS: VANCOMYCIN 250 MG/5 ML ORAL SOLUTION PO SCH ×2 (17:59→23:38)
[2022-08-14] MEDS: LEVOTHYROXINE NA 25 MCG TABLET (FP) PO SCH (06:54)
[2022-08-14] MEDS: VANCOMYCIN 250 MG/5 ML ORAL SOLUTION PO SCH ×4 (06:54→23:01)
[2022-08-14] MEDS ORDERED: INDOMETHACIN 50 MG RECTAL SUPPOSITORY PR ONE (08:06)
[2022-08-14 10:48] LABS: CALCIUM 7.5 mg/dL (8.5-10.1); MAGNESIUM 1.4 mg/dL (1.8-2.4)
[2022-08-14 10:49] LABS: BLOOD UREA NITROGEN 46.8 mg/dL (7-18)
[2022-08-14 10:51] LABS: CREATININE 1.2 mg/dL (0.55-1.3)
[2022-08-14] MEDS: PANTOPRAZOLE 40 MG TABLET PO SCH (10:52)
[2022-08-14] MEDS: AMINO ACIDS/PROTEIN HYDROLYS 30 ML LIQUID.PKT PO SCH ×2 (10:53→18:02)
[2022-08-14] MEDS: FUROSEMIDE 40 MG TABLET (FP) PO SCH (10:53)
[2022-08-14] MEDS: LOSARTAN POTASSIUM 50 MG TABLET PO SCH (10:53)
[2022-08-14] MEDS: NYSTATIN POWDER 100,000 UNITS/GM - 15 GM TOPICAL POWDER TP SCH ×2 (10:54→22:54)
[2022-08-14] MEDS ORDERED: MAGNESIUM 2GM/50ML STERILE WATER IVPB IVPB ONE (11:21)
[2022-08-14] MEDS: ACETAMINOPHEN 325 MG TABLET (FP) PO PRN (23:00)
[2022-08-15] MEDS: VANCOMYCIN 250 MG/5 ML ORAL SOLUTION PO SCH ×3 (05:31→17:47)
[2022-08-15] MEDS: LEVOTHYROXINE NA 25 MCG TABLET (FP) PO SCH (06:40)
[2022-08-15 06:49] VITALS: RESP 18
[2022-08-15] MEDS: AMINO ACIDS/PROTEIN HYDROLYS 30 ML LIQUID.PKT PO SCH ×2 (09:35→17:47)
[2022-08-15] MEDS: FUROSEMIDE 40 MG TABLET (FP) PO SCH (09:35)
[2022-08-15] MEDS: PANTOPRAZOLE 40 MG TABLET PO SCH (09:36)
[2022-08-15] MEDS: LOSARTAN POTASSIUM 50 MG TABLET PO SCH (09:36)
[2022-08-15] MEDS: NYSTATIN POWDER 100,000 UNITS/GM - 15 GM TOPICAL POWDER TP SCH ×2 (09:36→22:26)
[2022-08-15 10:39] LABS: BASO % 0.4 % (0-2.0); EOS % 3.9 % (0-4.5); HEMATOCRIT 30.2 % (32.4-45.2); HEMOGLOBIN 9.4 GM/dL (10.7-15.3); MCHC 31.3 g/dl (32.0-36.0); MEAN CELL VOLUME 92.8 fl (80-96); MEAN PLT VOLUME 8.1 fl (7.5-11.1); MONO % 6.9 % (3.8-10.2); NEUT % 72.8 % (42.8-82.8); PLATELET COUNT 176 10^3/uL (134-434); RBC 3.25 M/mm3 (3.60-5.2); RDW 20.5 % (11.6-15.6); WHITE BLOOD COUNT 7.3 K/mm3 (4.0-10.0)
[2022-08-15 11:29] LABS: ANISOCYTOSIS 2+; MACROCYTOSIS 1+
[2022-08-15 12:19] LABS: CALCIUM 7.7 mg/dL (8.5-10.1)
[2022-08-15 12:20] LABS: ALBUMIN 1.9 g/dl (3.4-5.0)
[2022-08-15 12:21] LABS: BLOOD UREA NITROGEN 47.4 mg/dL (7-18)
[2022-08-15 12:22] LABS: BILIRUBIN,TOTAL 0.5 mg/dL (0.2-1); TOT PROT 5.4 g/dl (6.4-8.2)
[2022-08-16] MEDS: VANCOMYCIN 250 MG/5 ML ORAL SOLUTION PO SCH ×3 (00:19→11:09)
[2022-08-16] MEDS: LEVOTHYROXINE NA 25 MCG TABLET (FP) PO SCH (06:43)
[2022-08-16] MEDS: AMINO ACIDS/PROTEIN HYDROLYS 30 ML LIQUID.PKT PO SCH (08:05)
[2022-08-16] MEDS: LOSARTAN POTASSIUM 50 MG TABLET PO SCH (09:56)
[2022-08-16] MEDS: NYSTATIN POWDER 100,000 UNITS/GM - 15 GM TOPICAL POWDER TP SCH (09:56)
[2022-08-16] MEDS: FUROSEMIDE 40 MG TABLET (FP) PO SCH (09:56)
[2022-08-16] MEDS: PANTOPRAZOLE 40 MG TABLET PO SCH (09:56)
[2022-08-16 14:55] VITALS: BP 151/60; PULSE 96; TEMP 98
== END 2022-08-16 17:43 | DRG 194 ==
LOC: JER 06:37 → JERBED 09:53 → J4W 08-04 02:00 → J5S 08-07 17:09 → J6S 08-15 15:43
PROVIDERS: ADMIT Internal Medicine; ATTEND Internal Medicine
PROC: 30233N1 Transfusion of Nonautologous Red Blood Cells into Peripheral Vein, Percutaneous Approach (ICD-10-PCS; principal; 2022-08-11)
DX: I50.33 Acute on chronic diastolic (congestive) heart failure (principal); K55.9 Vascular disorder of intestine, unspecified; J96.01 Acute respiratory failure with hypoxia; A04.72 Enterocolitis due to Clostridium difficile, not specified as recurrent; I27.20 Pulmonary hypertension, unspecified; K56.609 Unspecified intestinal obstruction, unspecified as to partial versus complete obstruction; M34.9 Systemic sclerosis, unspecified; K80.20 Calculus of gallbladder without cholecystitis without obstruction; R79.89 Other specified abnormal findings of blood chemistry; E03.9 Hypothyroidism, unspecified; I25.10 Atherosclerotic heart disease of native coronary artery without angina pectoris; D64.9 Anemia, unspecified
CPT/HCPCS: 0241U-QW; 36415; 36430; 71045-TC-FY; 74175-TC; 74177-TC; 76705-TC; 80048; 80053; 81003; 82150; 82607; 82728; 82747; 82803; 82977; 83516; 83540; 83550; 83615; 83690; 83735; 83880; 84439; 84443; 84484; 85014; 85025; 85027; 85610; 85651; 85730; 86038; 86140; 86704; 86803; 86850; 86900; 86901; 86922; 87040; 87045; 87046; 87086; 87324; 87340; 87449; 87517; 93005; 93010; 93306-TC; 97116-GP; 97162-GP; 99291; C9803-CS; J1644; J1756; P9058; Q9967; U0003; U0005